=== PATIENT | male | born 1965 | race Caucasian/White ===

== ENCOUNTER → 2021-03-15 11:36 | Outpatient (CLI) | payer OTHER, SELFPAY ==
[2021-03-16 15:27] LABS: Covid-19 Nasal PCR Sendout Lex POSITIVE
== END ==
PROVIDERS: Visit Provider Nurse Practitioner
DX: U07.1 COVID-19 (principal)
CPT/HCPCS: C9803; U0004; U0005

== ENCOUNTER → 2021-03-19 10:55 | Outpatient (CLI) | payer OTHER, SELFPAY ==
[2021-03-20 06:08] LABS: Covid-19 Nasal PCR Sendout Lex POSITIVE
== END ==
PROVIDERS: PCP Family Medicine; Visit Provider Nurse Practitioner
DX: U07.1 COVID-19 (principal)
CPT/HCPCS: C9803; U0004; U0005

== ENCOUNTER 2023-12-09 03:23 | Emergency (ER) | payer BC, SELFPAY ==
[2023-12-09] VITALS (9 sets, daily range): BP systolic 157–197; BP diastolic 97–117; PULSE 72–97; RESP 18–24; TEMP 36.6; O2SAT 94–100; BMI 22.2
--- NOTE | 2023-12-09 03:41 | CT_ITS ---
PROCEDURE INFORMATION: Exam: CT Abdomen And Pelvis Without Contrast Exam date and time: 12/09/2023 4:07 AM Age: 58 years old Clinical indication: Abdominal pain; Flank; Right; Additional info: R flank pain, suspect stone TECHNIQUE: Imaging protocol: Computed tomography of the abdomen and pelvis without contrast. Radiation optimization: All CT scans at this facility use at least one of these dose optimization techniques: automated exposure control; mA and/or kV adjustment per patient size (includes targeted exams where dose is matched to clinical indication); or iterative reconstruction. COMPARISON: No relevant prior studies available. FINDINGS: Liver: Normal. No mass. Gallbladder and biliary ducts: Normal. No calcified stones. No ductal dilation. Pancreas: Normal. No ductal dilation. Spleen: Normal. No splenomegaly. Adrenal glands: Normal. No mass. Kidneys and ureters: 3 mm stone in the distal right ureter with mild right-sided hydroureter and hydronephrosis. 5 mm stone is seen in the lower pole of the left kidney. Stomach and bowel: Unremarkable. No obstruction. No mucosal thickening. Appendix: No evidence of appendicitis. Intraperitoneal space: Unremarkable. No free air. No significant fluid collection. Vasculature: Unremarkable. No abdominal aortic aneurysm. Lymph nodes: Unremarkable. No enlarged lymph nodes. Urinary bladder: Unremarkable as visualized. Reproductive: Unremarkable as visualized. Bones/joints: Unremarkable. No acute fracture. Soft tissues: Unremarkable. IMPRESSION: 3 mm stone in the distal right ureter with mild right-sided hydroureter and hydronephrosis. 5 mm stone is seen in the lower pole of the left kidney.
--- NOTE | 2023-12-09 03:42 | PC.NURSE ---
Dr. Lopez at bedside
--- NOTE | 2023-12-09 03:44 | ED_ITS ---
Discharge Plan Disposition Patient Disposition: Home, Self-Care Condition: Good Prescriptions Prescriptions: New hydrocodone-acetaminophen 5-325 mg tablet 1 tab PO Q6H PRN (Reason: pain (scale score 7-10)) Qty: 10 0RF ondansetron 4 mg tablet,disintegrating 4 mg PO Q6H PRN (Reason: nausea and vomiting) Qty: 10 0RF tamsulosin 0.4 mg capsule 0.4 mg PO DAILY Qty: 7 0RF Referrals Follow up/Referrals: Jesús Beard MD [Staff Physician] - See instructions (R ureteronephrosis 3mm) Activity Restrictions/Add. Instructions Additional Instructions/Restrictions: You were evaluated in the ER and are appropriate for discharge at this time. Take acetaminophen, ibuprofen if needed for pain. If these medications do not control your pain, then take the hydrocodone. Note that hydrocodone has 325 mg of acetaminophen in it, do not exceed 4000 mg of acetaminophen total in 24 hours. If you take the hydrocodone, do not drive or operate machinery as this medication can make you sleepy and impair your judgment. Drink plenty of water. Take the ondansetron if needed for nausea and vomiting, take the tamsulosin nightly to help pass the stone. You have been referred to Dr. Beard for outpatient follow-up, also make an appointment with your primary care doctor for reevaluation. Return to the ER with new, worsening, or otherwise concerning symptoms. Clinical Impressions Clinical Impression: Ureterolithiasis, Hydronephrosis, Acute right flank pain Instructions Patient Instructions: DI for Acute Abdominal Pain Print Language Print Language: Spanish Discharge ED Provider: Juan Lopez Adult HPI General Chief complaint: Abdominal Pain Stated complaint: R side, back pain, vomiting Time Seen by Provider: 12/09/23 03:33 Mode of Arrival: Ambulatory Source of Information: Patient Limitations: No Limitations Description of Symptoms (Recalled from ER Triage Doc. by RN): Patient has had severe right flank pain since 2:40 am. History of Present Illness HPI narrative: 58-year-old male with a history of diabetes on metformin and previous left kidney stone in 1995 presents to the ER with severe right flank pain that started approximately 1 hour prior to arrival. Patient states he believes he has a kidney stone. Pain was sudden onset. He states earlier today his urine had a strong smell but he has not had dysuria or hematuria. Patient reports no fevers but states he is shaky from the pain. He also had emesis upon arrival in the ER secondary to pain. Patient reports his whole right side is sore. He denies fevers. Emesis has been nonbloody, nonbilious. ROS otherwise negative. Related Data Previous Rx's ?Medication ?Instructions ?Recorded hydrocodone 5 mg-acetaminophen 325 1 tab PO Q6H PRN pain (scale score 12/09/23 mg tablet 7-10) #10 tabs ondansetron 4 mg disintegrating 4 mg PO Q6H PRN nausea and 12/09/23 tablet vomiting #10 tabs tamsulosin 0.4 mg capsule 0.4 mg PO DAILY #7 caps 12/09/23 Allergies Allergy/AdvReac Type Severity Reaction Status Date / Time Penicillins Allergy Unknown Verified 10/22/17 15:57 [facility] Disclaimer: The information contained in this section may have been updated after the patient was seen, as this information can be updated by other users. Social History Smoking Status: Never smoker alcohol intake: never current occupational status: employed Travel in the last 8 weeks: None ROS Obtained: Yes Systems reviewed as appropriate & no additional complaints except as documented Positive ROS per HPI Physical Exam General General appearance: alert and in no apparent distress Head Head exam: atraumatic and normocephalic Eye Eye exam: Present PERRL and EOMI ENT ENT exam: Present mucous membranes moist Neck Neck exam: Present normal inspection and full ROM Chest Chest inspection: Present symmetric chest wall rise Respiratory Respiratory exam: Present normal lung sounds bilaterally; Absent respiratory distress, wheezes or stridor Cardiovascular Cardiovascular exam: Present regular rate and normal rhythm Abdominal Exam Abdominal exam: Present soft; Absent distention, tenderness, guarding or rebound Extremities Exam Extremities exam: Present full ROM Back Exam Back exam: Present CVA tenderness (R) (Severe); Absent CVA tenderness (L) Neurological Exam Neurological exam: Present alert and oriented X3; Absent motor sensory deficit Psychiatric Psychiatric exam: Present normal affect and normal mood Skin Skin exam: Present warm and dry Medical Decision Making Medical Records Screening: Per USPSTF and CDC recommendations, given the prevalence of disease in our region, it is our hospital?s policy to screen for HIV and viral Hepatitis for all patients aged 18 and over and those with ongoing risk factors. Matt Inquiry Pt receiving controlled substance: Yes Matt was queried for this patient: Yes Reference #:: [id number] Risks and benefits of using a controlled substance: were discussed with pt by me Vital Signs: 12/09/23 03:25 12/09/23 03:34 12/09/23 03:45 Temperature 97.9 F Temperature Source Oral Pulse Rate 86 89 Pulse Rate [Left Radial] 97 H Respiratory Rate 18 Blood Pressure Blood Pressure [Right Arm] 197/117 H Blood Pressure Mean [Right Arm] 143 Blood Pressure Source [Right Arm] Automatic Cuff Blood Pressure Position [Right Arm] Supine 02 Sat by Pulse Oximetry 99 100 99 Oxygen Delivery Method Room Air 12/09/23 04:00 12/09/23 04:30 12/09/23 05:00 Temperature Temperature Source Pulse Rate 85 83 79 Pulse Rate [Left Radial] Respiratory Rate Blood Pressure 160/100 H 173/99 H 157/97 H Blood Pressure [Right Arm] Blood Pressure Mean [Right Arm] Blood Pressure Source [Right Arm] Blood Pressure Position [Right Arm] 02 Sat by Pulse Oximetry 99 100 99 Oxygen Delivery Method 12/09/23 05:30 12/09/23 06:00 Temperature Temperature Source Pulse Rate 81 90 Pulse Rate [Left Radial] Respiratory Rate Blood Pressure 169/97 H 159/104 H Blood Pressure [Right Arm] Blood Pressure Mean [Right Arm] Blood Pressure Source [Right Arm] Blood Pressure Position [Right Arm] 02 Sat by Pulse Oximetry 98 94 L Oxygen Delivery Method Lab Data Lab Results 12/09/23 03:34: WBC 9.2, RBC 5.17, Hgb 16.0, Hct 46.7, MCV 90.4, MCH 31.0, MCHC 34.3, RDW 13.5, Plt Count 224, MPV 7.6, Neut % (Auto) 54.1, Lymph % (Auto) 36.6, [place] % (Auto) 6.8, Eos % (Auto) 1.3, Baso % (Auto) 1.1, Neut # (Auto) 5.0, Lymph # (Auto) 3.4, [place] # (Auto) 0.6, Eos # (Auto) 0.1, Baso # (Auto) 0.1, PT 10.6, INR 0.94, Sodium 143, Potassium 3.4 L, Chloride 107, Carbon Dioxide 27, Anion Gap 12.4, BUN 17, Creatinine 0.90, Estimated Creat Clear 87, Estimated GFR 86, Est GFR ( Amer) 104, Glucose 181 H, Calcium 9.8, Total Bilirubin 0.6, AST 28, ALT 29, Alkaline Phosphatase 103, Total Protein 8.1, Albumin 5.2 H, Globulin 2.9, Albumin/Globulin Ratio 1.8, HIV 1&2 Antibody Rapid Nonreactive 12/09/23 05:45: Urine Color Yellow, Urine Appearance Clear, Urine pH 7.0, Ur Specific [place] 1.020, Urine Protein Negative, Urine Glucose (UA) 3+, Urine Ketones 1+, Urine Blood Negative, Urine Nitrate Negative, Urine Bilirubin Negative, Urine Urobilinogen 0.2, Ur Leukocyte Esterase Negative, Urine WBC Occasional, Ur Squamous Epith Cells Occasional, Urine Bacteria Trace 12/09/23 03:34 12/09/23 03:34 Orders (Tests/Meds): ED MEDICATIONS Discontinued Medications Generic Name Dose Route Start Last Admin Trade Name Freq PRN Reason Stop Dose Admin Hydrocodone Bitart/Acetaminophen 1 tab 12/09/23 05:34 12/09/23 05:41 Hydrocodone/Apap 5/325 Mg Tablet PO 12/09/23 05:35 1 tab ONCE ONE Administration Fentanyl Citrate 50 mcg 12/09/23 04:42 12/09/23 04:53 Fentanyl 250mcg/5ml Vial IV 12/09/23 04:43 Not Given ONCE ONE Fentanyl Citrate 50 mcg 12/09/23 04:53 12/09/23 04:54 Fentanyl 100mcg/2ml Vial IV 12/09/23 04:54 50 mcg ONCE ONE Administration Sodium Chloride 1,000 mls @ 999 mls/hr 12/09/23 03:41 12/09/23 03:48 Sod Chlor 0.9% 1000ml Bag IV 12/09/23 04:41 999 mls/hr .Q1H1M ONE Administration Ketorolac Tromethamine 30 mg 12/09/23 03:43 12/09/23 03:47 Ketorolac 30mg/Ml Vial IV 12/09/23 03:44 30 mg ONCE ONE Administration Morphine Sulfate 4 mg 12/09/23 03:41 12/09/23 03:48 Morphine 4mg/Ml Syringe IV 12/09/23 03:42 4 mg ONCE ONE Administration Morphine Sulfate 4 mg 12/09/23 03:41 12/09/23 04:38 Morphine 4mg/Ml Syringe IV 01/08/24 03:40 4 mg Q1HP PRN Administration Severe Pain (7-10) Ondansetron HCl 4 mg 12/09/23 03:41 12/09/23 03:47 Ondansetron 4mg/2ml Vial IV 12/09/23 03:42 4 mg ONCE ONE Administration Oxycodone HCl 5 mg 12/09/23 05:29 12/09/23 05:35 Oxycodone 5mg Immediate Release Tablet PO 12/09/23 05:30 Not Given ONCE ONE Tamsulosin HCl 0.4 mg 12/09/23 05:45 12/09/23 05:41 Tamsulosin 0.4mg Capsule PO 12/09/23 05:46 0.4 mg ONCE ONE Administration ORDERS Category Date Time Status CT abdomen pelvis wo con Stat Cat Scan 12/09/23 03:41 Completed CBC w/Auto Diff [Complete Blood Count Auto Diff] Stat Lab 12/09/23 03:34 Completed CMP [Comprehensive Metabolic Panel] Stat Lab 12/09/23 03:34 Completed HIV (1&2) Antibody Rapid Stat Lab 12/09/23 03:34 Completed Hep C Ab with Reflex to RNA Stat Lab 12/09/23 03:34 Received PT INR [Prothrombin Time INR] Stat Lab 12/09/23 03:34 Completed Urinalysis and Microscopic Stat Lab 12/09/23 05:45 Completed Medical Decision Narrative: In summary, this 58-year-old male with comorbidities as listed in HPI presents to the emergency department today with right flank pain. On initial evaluation patient is hypertensive likely secondary to pain but overall stable, afebrile, exam notable for severe right CVA tenderness, cardiopulmonary and abdominal exam benign. Differential diagnosis includes but is not limited to nephrolithiasis, ureterolithiasis, hydronephrosis, hydroureter, kidney dysfunction, electrolyte abnormality, pyelonephritis, urinary tract infection, I considered intra- abdominal pathology such as appendicitis but much lower suspicion for this given patient's acute onset of symptoms, afebrile presentation, and obvious right CVA tenderness. Based on these concerns, I ordered serum labs, CT imaging. Patient received IV fluids, morphine, Zofran, Toradol for management of symptoms. Patient required additional dose of morphine for pain control. Labs personally reviewed demonstrate no leukocytosis or anemia, no findings of kidney dysfunction, UA negative for findings of infection. Patient continued having discomfort and received low-dose IV fentanyl. After this, his pain was well-controlled. CT abdomen pelvis personally interpreted demonstrates 3 mm distal right ureteral stone with mild hydronephrosis. See radiology read for final interpretation. Patient received a dose of hydrocodone in the ER prior to discharge. He tolerated this well. I prescribed hydrocodone, tamsulosin, Zofran for outpatient management. Risks and benefits of narcotic medications were discussed with the patient by me. Patient was referred to urology for reevaluation. Patient was given instructions on symptomatic management, follow up instructions, and return precautions for the emergency department. Patient indicated understanding and was discharged in stable condition. Critical Care Critical Care Time Critical Care Time: No
[2023-12-09] MEDS: ONDANSETRON 4MG/2ML VIAL 4 MG IV (03:47)
[2023-12-09] MEDS: KETOROLAC 30MG/ML VIAL 30 MG IV (03:47)
[2023-12-09] MEDS: MORPHINE 4MG/ML SYRINGE 4 MG IV ×2 (03:48→04:38)
[2023-12-09] MEDS: 0.9 % SODIUM CHLORIDE 1000ML 1,000 ML 999 ML IV (03:48)
[2023-12-09 03:52] LABS: Basophils # 0.1 K/mm3 (0-0.2); Basophils % 1.1 % (0.1-2.0); Eosinophils # 0.1 K/mm3 (0.0-0.4); Eosinophils % 1.3 % (0.1-12.0); Hematocrit 46.7 % (42.0-52.0); Lymphocytes # 3.4 K/mm3 (0.7-4.5); Lymphocytes % 36.6 % (10-50); Mean Corpuscular HGB Conc 34.3 g/dL (31.8-35.4); Mean Corpuscular Volume 90.4 fl (80-94); Mean Platelet Volume 7.6 fl (7.4-10.4); Monocytes # 0.6 K/mm3 (0.1-1.0); Monocytes % 6.8 % (1.7-9.3); Neutrophils % 54.1 % (37.0-80.0); Platelet Count 224 K/mm3 (142-424); Red Blood Count 5.17 M/mm3 (4.60-6.20); Red Cell Distribution Width 13.5 % (11.5-17.5); White Blood Count 9.2 K/mm3 (4.8-10.8)
[2023-12-09 03:56] LABS: Alanine Aminotransferase 29 U/L (12-78); Albumin Level 5.2 g/dl (3.5-5.0); Albumin/Globulin Ratio 1.8 (1.1-1.8); Alkaline Phosphatase 103 U/L (38-126); Anion Gap 12.4 mEq/L (5-15); Aspartate Amino Transferase 28 U/L (17-59); Bilirubin,Total 0.6 mg/dl (0.2-1.3); Blood Urea Nitrogen 17 mg/dl (9-20); Calcium 9.8 mg/dl (8.4-10.2); Carbon Dioxide 27 mmol/L (22.0-30.0); Chloride 107 mmol/L (98-107); Creatinine Clearance Estimated 87 mL/min (50-200); Estimated Glomerular Filt Rate 86 ml/min (>60); GFR (African American) 104 ML/MIN (>60); Globulin 2.9 g/dL (1.3-3.2); Glucose 181 mg/dl (74-100); Potassium 3.4 mmoL/L (3.5-5.1); Sodium 143 mmol/L (136-145); Total Protein,Serum 8.1 g/dl (6.3-8.2)
[2023-12-09 03:57] LABS: INR 0.94 (0.9-1.1); Prothrombin Time 10.6 seconds (10.1-12.5)
--- NOTE | 2023-12-09 04:03 | PC.NURSE ---
patient to radiology
--- NOTE | 2023-12-09 04:11 | PC.NURSE ---
patient back in room
[2023-12-09 04:40] LABS: HIV (1&2) Antibody Rapid NONREACTIVE (NONREACTIVE)
--- NOTE | 2023-12-09 04:45 | PC.NURSE ---
Pt is in severe pain, asking for something else . I did administer the PRN dose of Morphine 4mg IVP and let Dr. Lopez know of pt's increase pain and medicated per MAR. no new orders.
[2023-12-09] MEDS: FENTANYL 100MCG/2ML VIAL 50 MCG IV (04:54)
--- NOTE | 2023-12-09 05:07 | PC.NURSE ---
Performed bladder scan and it revealed [address] Lopez notified
--- NOTE | 2023-12-09 05:08 | PC.NURSE ---
pt pain is much controlled and he is resting more comfortably. His sat has dropped to 86% at times and back up to 97%. Pt states he has known [place]. Placed on 2LPM NC
[2023-12-09] MEDS: HYDROCODONE/APAP 5/325 MG TABLET 1 TAB PO (05:41)
[2023-12-09] MEDS: TAMSULOSIN 0.4MG CAPSULE 0.4 MG PO (05:41)
--- NOTE | 2023-12-09 05:47 | PC.NURSE ---
patient assisted to bathroom, urine sample sent to lab
[2023-12-09 05:53] LABS: Microscopic, Urine URINE MICROSCOPIC (MICROSCOPIC)
[2023-12-09 05:54] LABS: Appearance,Urine CLEAR (Clear); Bilirubin,Urine Negative (Negative); Blood, Urine Negative (Negative); Color,Urine YELLOW (Yellow); Glucose,Urine (UA) 3+ (Negative); Ketones,Urine 1+ (Negative); Leukocyte Esterase,Urine Negative (Negative); Nitrate,Urine Negative (Negative); Protein,Urine Negative (Negative); Urobilinogen,Urine 0.2 EU/dl (0.2)
[2023-12-09 06:04] LABS: Bacteria,Urine Trace /lpf; Squamous Epithelial Cell,Urine Occasional #/hpf (0-5); WBC,Urine Occasional #/hpf (0-3)
[2023-12-10 09:33] LABS: HCV Ab Non Reactive (Non Reactive)
== END 2023-12-09 06:28 | disposition home or self-care (01) ==
PROVIDERS: Emergency Provider Emergency Medicine
DX: N20.1 Calculus of ureter (principal); N13.30 Unspecified hydronephrosis; R10.9 Unspecified abdominal pain; R11.11 Vomiting without nausea
CPT/HCPCS: 74176; 80053; 81001; 85025; 85610; 86803; 87389; 96361; 96374; 96375; 99284; J1885; J2270; J2405; J3010; J7030

== ENCOUNTER 2023-12-21 09:51 | Outpatient (CLI) | payer BC, SELFPAY | END 2023-12-21 23:59 | disposition home or self-care (01) | LOC: LAB 09:55 | PROVIDERS: PCP Family Medicine; Visit Provider Urology | DX: N40.0 Benign prostatic hyperplasia without lower urinary tract symptoms (principal) | CPT/HCPCS: 36415; G0103 ==

== ENCOUNTER 2024-01-26 13:10 | Outpatient (CLI) | payer BC, SELFPAY ==
--- NOTE | 2024-01-26 13:16 | XR_ITS ---
FINAL REPORT CLINICAL HISTORY: flank pain FINDINGS: ABDOMEN SINGLE VIEW There is a nonspecific, nonobstructive bowel gas pattern. No abnormal dilatation is identified. There is a moderate amount of retained stool throughout the colon. There is no abnormal calcification. IMPRESSION: Moderate stool burden. Reviewed, Interpreted and Dictated by Alon Cunningham III, MD Transcribed by Beniat Vanessa Authenticated and [facility]
== END 2024-01-26 23:59 | disposition home or self-care (01) ==
LOC: RAD 13:11
PROVIDERS: PCP Family Medicine; Visit Provider Urology
DX: R10.9 Unspecified abdominal pain (principal)
CPT/HCPCS: 74018

== ENCOUNTER 2024-06-03 18:06 | Emergency (ER) | payer OTHER, SELFPAY ==
[2024-06-03 18:27] VITALS: BP 142/95; PULSE 90; RESP 20; TEMP 37; O2SAT 98; BMI 21.5
[2024-06-03] MEDS: TET/DIPHTH/PERT-ADULT 0.5ML SYRINGE 0.5 ML IM (18:48)
--- NOTE | 2024-06-03 18:57 | ED_ITS ---
<Statement entered by Devora Dangelo DO - 06/04/24 00:01> I was consulted by the ROBBIN, and we discussed the complexity of the problems being addressed. I approved the treatment and management plan for this patient's care in the emergency department, thus performing a substantive portion of the medical decision making. Devora Dangelo DO Discharge Plan Disposition Patient Disposition: Home, Self-Care Condition: Good Prescriptions Prescriptions: New cephalexin 500 mg capsule 500 mg PO BID 7 Days Qty: 14 0RF No Action clindamycin HCl 300 mg capsule 300 mg PO Patient Comments: TAKE ONE CAPSULE BY MOUTH EVERY 6 HOURS -- FINISH ALL MEDICINE -- tadalafil [Cialis] 5 mg tablet 5 mg PO DAILY 30 Days Qty: 30 3RF Referrals Follow up/Referrals: Aaron Klein MD [Primary Care Provider] - See instructions Activity Restrictions/Add. Instructions Additional Instructions/Restrictions: Please keep clean dry and covered with a nonocclusive dressing. Recommend washing with soap and water. Sutures need to stay in for 2 weeks. If you have any increased redness drainage swelling or pain return to the emergency department. I prescribed an antibiotic for you please take it till it is all gone. Clinical Impressions Clinical Impression: Laceration of right thumb Qualifiers: Encounter type: initial encounter Damage to nail status: without damage Foreign body presence: without foreign body Qualified Code(s): S61.011A - Laceration without foreign body of right thumb without damage to nail, initial encounter Instructions Patient Instructions: DI for Laceration Repair Print Language Print Language: Slovak Discharge ED Provider: Devora Dangelo General Adult HPI General Chief complaint: Wound/Laceration Stated complaint: A/O cut r thumb open 06/03/24 1730 Time Seen by Provider: 06/03/24 18:35 Mode of Arrival: Ambulatory Source of Information: Patient Description of Symptoms (Recalled from ER Triage Doc. by RN): pt cut thumb on piece of metal, bleeding is controlled and edges are approxiamate History of Present Illness HPI narrative: Patient presents for evaluation of a laceration of his right thumb. Patient was trying to move a freezer and advertently cut the volar aspect of his right thumb on a piece of metal. He denies any loss of motor or sensory but could not control the bleeding so he came to the emergency department. Related Data Home Medications ?Medication ?Instructions ?Recorded ?Confirmed clindamycin HCl 300 mg capsule 300 mg PO 02/01/24 02/01/24 Previous Rx's ?Medication ?Instructions ?Recorded tadalafil 5 mg tablet (Cialis) 5 mg PO DAILY 30 days #30 tabs 02/01/24 cephalexin 500 mg capsule 500 mg PO BID 7 days #14 caps 06/03/24 Allergies Allergy/AdvReac Type Severity Reaction Status Date / Time Penicillins Allergy Unknown Verified 02/01/24 09:25 [facility] Disclaimer: The information contained in this section may have been updated after the patient was seen, as this information can be updated by other users. Social History Smoking Status: Never smoker alcohol intake: never current occupational status: employed Travel in the last 8 weeks: None Have you lived/traveled outside US in past 30 days?: No Contact w/someone who lives/traveled outside US past 30 days?: No Exposure to someone with infectious disease in past 14 days?: No Do you have a fever (greater than 100.4 F or 38 C)?: No Have you tested positive for COVID-19: No Exposed to someone with COVID-19 in past 14 days?: No Do you have a sore throat?: No Do you have a cough?: No Do you have any weakness?: No Do you have any diarrhea?: No Are you experiencing any unusual bleeding?: No Do you have any muscle aches/pain?: No Do you have any abdominal pain?: No Are you experiencing loss of taste or smell?: No Other Medical History Have you received the Pneumonia Vaccine: Yes ROS Obtained: Yes Systems reviewed as appropriate & no additional complaints except as documented Physical Exam General General appearance: alert and in no apparent distress Respiratory Respiratory exam: Present normal lung sounds bilaterally Cardiovascular Cardiovascular exam: Present regular rate and +S2 Neurological Exam Neurological exam: Present alert and oriented X3 Medical Decision Making Medical Records Medical records reviewed: Yes I reviewed the patient's medical records. Screening: Per USPSTF and CDC recommendations, given the prevalence of disease in our region, it is our hospital?s policy to screen for HIV and viral Hepatitis for all patients aged 18 and over and those with ongoing risk factors. Matt Inquiry Pt receiving controlled substance: No Vital Signs: 06/03/24 18:27 06/03/24 19:09 Temperature 98.6 F 98.1 F Temperature Source Oral Pulse Rate 79 Pulse Rate [Left Radial] 90 Respiratory Rate 20 20 Blood Pressure 138/78 Blood Pressure [Right Arm] 142/95 H Blood Pressure Mean [Right Arm] 110 02 Sat by Pulse Oximetry 98 Oxygen Delivery Method Room Air Room Air Lab Data Lab results reviewed: Yes I reviewed the patient's lab results. Orders (Tests/Meds): ED MEDICATIONS Discontinued Medications Generic Name Dose Route Start Last Admin Trade Name Erick PRN Reason Stop Dose Admin Cephalexin HCl 500 mg 06/03/24 18:59 06/03/24 19:03 Cephalexin 500mg Capsule PO 06/03/24 19:00 500 mg ONCE ONE Administration Lidocaine/Epinephrine 10 ml 06/03/24 18:59 06/03/24 19:01 Lidocaine 1% W/Epi 1:100,000 20ml Vial SQ 06/03/24 19:00 10 ml ONCE ONE Administration Tetanus/Reduced Diphtheria/Acell Pertussis 0.5 ml 06/03/24 18:39 06/03/24 18:48 Tet/Diphth/Pert-Adult 0.5ml Syringe IM 06/03/24 18:40 0.5 ml .ONCE ONE Administration Medical Decision Narrative: In summary patient is a 4-year-old male who presents to the emergency department for evaluation of right thumb injury. Patient is hemodynamically stable upon arrival, afebrile. Physical exam is remarkable for approximately 3 cm laceration that begins at the DIP flexor crease that extends towards the tip of the thumb on the volar surface. Patient has full range of motion is neurovascular intact distally.. Differential diagnosis includes simple versus complex laceration. Initial workup will be conducted with exam under subcutaneous anesthesia. Initial interventions include Keflex and Tdap. Initial workup after assuring that the patient is neurovascularly intact patient was then anesthetized with 10 cc of lidocaine with epinephrine. After adequate anesthesia obtained wound was explored and patient only has superficial laceration does not involve deep structures. Given this wound was irrigated with copious amounts of saline and then the wound was repaired in a primary fashion with eleven 4.0 nylon interrupted sutures. Patient is appropriate for discharge with wound care instructions given to myself a prescription for Keflex and instructions to have his sutures removed in 2 weeks. He is given strict return precautions . Procedures Laceration Laceration 1: Site: thumb Side (If applicable): right Size (cm): 3 Description: linear Depth: simple, single layer Local Anesthetic: lidocaine 1% and with epi Amount of anesthesia used (mL): 10 Pre-repair: wound explored, irrigated extensively and deep structures intact Skin layer closed with: nylon Size (cm): 4-0 Number of sutures: 11 Technique: simple, interrupted Critical Care Critical Care Time Critical Care Time: No
[2024-06-03] MEDS: LIDOCAINE 1% W/EPI 1:100,000 20ML VIAL 10 ML SQ (19:01)
[2024-06-03] MEDS: cephALEXin 500MG CAPSULE 500 MG PO (19:03)
[2024-06-03 19:09] VITALS: BP 138/78; PULSE 79; RESP 20; TEMP 36.7; O2SAT 99
== END 2024-06-03 19:10 | disposition home or self-care (01) ==
PROVIDERS: Emergency Provider Emergency Medicine; PCP Family Medicine
DX: S61.011A Laceration without foreign body of right thumb without damage to nail, initial encounter (principal); W26.8XXA Contact with other sharp object(s), not elsewhere classified, initial encounter; Z23 Encounter for immunization
CPT/HCPCS: 12002; 90471; 90715; 99283

== ENCOUNTER 2024-08-07 21:27 | Emergency (ER) | payer SELFPAY ==
--- OUTSIDE RECORDS SUMMARY | 2024-06-02 11:45 | XMS_ITS | Continuity of Care Document ---
Author Organization [facility] Address [address] [place] [address] Phone Care Team Providers Care Hot Dip Plating Supervisor Name Role Phone Ronal ALDRIDGE, Adam Unavailable Unavailable Allergies, Adverse Reactions, Alerts Substance Reaction Status Criticality Penicillins HivesHives Active No Information Procedures Procedure Date Office/outpatient visit,est, mod 2024 Office/outpatient visit,new, mod 2024 X-ray exam of hand, 3+ views Advance Directives Directive Yes / No Effective Date File Name No Information Encounters Encounter Description Practice Location Reason(s) For Visit Diagnoses Date Provider Providers Copied on Encounter Office/outpat ient visit,est, mod [facility], [facility] [place], [address], [place] tel:[phone] [facility] Localized swelling, mass and lump, upper limb, bilateral Ronal Medina. [address] [facility], [facility] [address], [place], [id number] , [place]. tel:[phone] Referring Provider: Aaron Soliman, [address] [facility] [address], [address] . tel:[phone] Office/outpat ient visit,new, [facility], [address] [place] [address], [address], [place] tel:[phone] [facility] Localized swelling, mass and lump, upper limb, bilateral Ronal Medina. [address] [facility], [address], [place], [place], [id number] , [place]. tel:[phone] Referring Provider: Aaron Soliman, [facility] [place] [address], [address] . tel:[phone] Family History Family Member Type Diagnosis Age At Onset No Information Payers Payer name Insurance type Covered republican ID Ian morales(epiAndriy Downey [facility] Medicaid - [id number] Social History Type Description Quantity Date Captured Comments Alcohol Use Details No Caffeine Use Details Unknown Tobacco Use Status No Information Smoking Status Never smoker Sex Male Chief Complaint And Reason For Visit No Information Reason For Referral Reason For Referral No Information Plan Of Treatment Date Type Action Status Future Order: Radiology Order MR I Hand WO Contrast ([id number]), Ordered on: Ordered History Of Present Illness Encounter Date Complaint History Of Prese nt Illness hand Functional Status Date Functional Assessmen t No Information Instructions Date Instruction Additional Infor mation No Information Assessments Type Assessment Date No Information Patient Care Teams Name Effective Dates (start - stop) Status Members No Information
--- OUTSIDE RECORDS SUMMARY | 2024-06-16 09:30 | XMS_ITS ---
[facility] Address [address] [place] [id number] Care Team Providers Care Philosophy Professor Name Role Phone Blanquita Klein Primary Care Provider [phone] Zeeshan Cabezas Unavailable [phone] Lidya Tse Unavailable [phone] Allergies Allergen (clinical drug ingredient) Drug/Non Drug Allergy documented on EMR Reaction Allergy Type Onset Date Status cefuroxime Cefuroxime Axetil hives Drug Allergy Active ciprofloxacin Cipro body aches, mouth ulcers Drug Allergy Active Penicillin Unknown Drug Allergy Active REASON FOR VISIT stitch removal Medications Medication SIG (Take, Route, Frequency, Duration) Notes Start Date End Date Status Clindamycin HCl 300 MG 1 capsule Orally Three times a day for 10 day(s) Active Xigduo XR 5-1000 MG 1 tablet Orally Two times a day for 90 days Active Ozempic (0.25 or 0.5 MG/DOSE) 2 MG/3ML 0.5mg Subcutaneous once a week 04/22/2024 Active Blood Glucose Test - as directed to test twice daily Diagnosis: E11.65 03/12/2023 Active Betamethasone Dipropionate Aug 0.05 % 1 application Externally Two times a day 10/15/2023 Active Flonase Allergy Relief 50 MCG/ACT 1 spray in each nostril Nasally Twice a day 03/04/2024 Active Multivitamin 1 TAB ONCE A DAY Active Betamethasone Dipropionate Aug 0.05 % 1 juan josé applied topically 2 times a day 07/17/2022 Active Blood Glucose Monitoring Suppl w/Device as directed to test twice daily Diagnosis: E11.65 03/12/2023 Active Vital Signs Blood pressure systolic 120 mm Hg 06/17/19 25 Blood pressure diastolic 78 mm Hg 025 Heart Rate 82 /min 06/16/2024 Height 70.50 in 06/16/2024 Weight 156.6 lbs 06/16/2024 BMI 22.15 kg/m2 06/16/2024 Encounters Encounter Location Date Provider Diagnosis [facility] [address] [place] [address] [address] [facility] [address] [place], [place] [id number] 06/16/2024 Lidya Tse Visit for suture removal Z48.02 Assessments Encounter Date Diagnosis (ICD Code) Assessment Notes Treatment Notes Treatment Clinical Notes Section Notes 06/16/2024 Visit for suture removal (ICD-10 - Z48.02) Sutures removed without difficulty. Plan Of Treatment Treatment Notes Assessment Notes Visit for suture removal Sutures removed without difficulty. Next Appt Details Follow Up: prn, Reason: Provider Name:Lidya Mcknight y, 10/21/2024 09:00:00 AM, [address] [place] [address] [address] [facility], [address], [place], [place], [id number], Progress Notes * SINHAVALERIEDOB: 4 (59 yo M)Acc No.[id number]:06/16/2024 Progress Notes Patient: VALERIE BRADFORD Provider: MONICA Meredith :1965 A ge:58 Y S ex:Male Date:06/16/2024 Address:[address] [place] [address] [address], [place], [id number] Pcp:Blanquita Klein Subjective: * Chief Complaints: * 1 . Stitch removal. * HPI: H PI: 58 year old male presents with c/o Patient is here today for?Pt sts he is here today for stitch removal from his rt thumb. Pt sts it did bust open in one spot, but sts he thinks it is fine. Pt sts ihe has the stitches for 2 weeks . * ROS: D ERMATOLOGY: no R ml. n o H jackson. G ASTROENTEROLOGY: no N ausea. n o V omiting. n o D iarrhea.? U ROLOGY: no D ifficulty urinating. n o B lood in urine. * Medical History: M igraines, Type 2 Diabetes, Hypertension, Hypertriglyceridemia, Vikings Disease (Dupuytren's Contractures). * Surgical History: L T Ear Basal Cell Removal- Dr Tompkins 01/2014. * Hospitalization/Major Diagno stic Procedure: F ivis- [facility] 10/2014. * Family History: F ather: . M other: alive. S iblings: alive. C hildren: alive. 1 brother(s) - healthy. 3 daughter(s) - healthy. . * Social History: C URRENT TOBACCO USE S moking Status: Patient does NOT smoke. C affeine: yes, frequency:. Marital Status: . Past smoking status: no, Smoking status: Does not smoke. Alcohol: no. * Medications: T aking Flonase Allergy Relief 50 MCG/ACT Suspension 1 spray in each nostril Nasally Twice a day , Taking Multivitamin 1 TAB ONCE A DAY , Taking Betamethasone Dipropionate Aug 0.05 % Cream 1 juan josé applied topically 2 times a day , Taking Blood Glucose Monitoring Suppl w/Device Kit as directed to test twice daily , Notes to Pharmacist: Diagnosis: E11.65, Taking Blood Glucose Test - Strip as directed to test twice daily , Notes to Pharmacist: Diagnosis: E11.65, Taking Betamethasone Dipropionate Aug 0.05 % Cream 1 application Externally Two times a day , Taking Clindamycin HCl 300 MG Capsule 1 capsule Orally Three times a day , Taking Xigduo XR 5-1000 MG Tablet Extended Release 24 Hour 1 tablet Orally Two times a day , Taking Ozempic (0.25 or 0.5 MG/DOSE) 2 MG/3ML Solution Pen-injector 0.5mg Subcutaneous once a week , Medication List reviewed and reconciled with the patient * Allergies: C ipro: body aches, mouth ulcers - Side Effects, Penicillin, Cefuroxime Axetil: hives - Allergy. Objective: * Vitals: W t: 156.6, Temp: 97.6, BP: 120/78, HR: 82, Nurse: mmlyssa, Ht: 70.50, BMI:22.15. * Examination: G eneral Examination: General Appearance: N AD. Chest: n ormal shape and expansion. Heart: R SR. Lungs: c lear to auscultation. Skin: right thumb with 10 simple interrupted sutures removed with suture removal kit with no difficulty, steri-strips placed. Assessment: * Assessment: 1. V isit for suture removal - Z48.02 (Primary) Plan: * Treatment: * Follow Up: p rn * Billing Information: * Visit Code: 91067 Office Visit, Est Pt., Level 3. * Procedure Codes: * Electronic signature of MONICA Mays on 08/07/2024 at 10:03 PM EDT Sign off status: Pending * Provider: MONICA Meredith Date: 0 06/16/2024 Generated for Kameron bocanegra/Ally/Juan Fitting on: 0 08/07/2024 10:03 PM EDT History and Physical Notes * HPI (History of Present Illness) Category Sub-Category Detail Notes Category Not es HPI Patient is here today for Pt sts he is here today for stitch removal from his rt thumb. Pt sts it did bust open in one spot, but sts he thinks it is fine. Pt sts ihe has the stitches for 2 weeks Examination Category Sub-Category Detail Notes Category Not es General Examination Heart: RSR Lungs: clear to auscultatio n General Appearance: NAD Skin: right thumb with 10 simple interrupted sutures removed with suture removal kit with no difficulty, steri-strips placed Chest: normal shape and exp ansion
--- OUTSIDE RECORDS SUMMARY | 2024-06-17 06:45 | XMS_ITS ---
Author Organization [facility] Address [address] [facility] [address] [facility] [address] [place] [id number] Care Team Providers Care Preventive Medicine Officer Name Role Phone Blanquita Klein Primary Care Provider [phone] Zeeshan Cabezas Unavailable [phone] Jovanna Royal [phone] REASON FOR VISIT 6 Week Follow Up Encounters Encounter Location Date Provider Diagnosis [facility] [address] [facility] [address] [facility] [address] [place] [id number] 06/17/2024 Jovanna Royal Plan Of Treatment Next Appt Details Provider Name:Lidya lancaster, 10/21/2024 09:00:00 AM, [address] [facility] [address] [facility], [address], [place], [place], [id number], Progress Notes * VALERIE SINHADOB: 4 (59 yo M)Acc No.[id number]:06/17/2024 Progress Notes Patient: VALERIE BRADFORD Provider: Jovanna Royal M.D. :1965 A ge:58 Y S ex:Male Date:06/17/2024 Address:[address] [place] [address] [id number] Pcp:Blanquita Klein Subjective: * Chief Complaints: * 1 . 6 Week Follow Up. * Medical History: Objective: * Vitals: Assessment: Plan: * Treatment: * Billing Information: * Visit Code: * Procedure Codes: * Electronic signature of Jovanna Royal MD on 08/07/2024 at 10:03 PM EDT Sign off status: Pending * Provider: Jovanna Royal M.D. Date: 06/17/2024 Generated for Kameron bocanegra/Ally/Edwardo on: 0 08/07/2024 10:03 PM EDT
--- OUTSIDE RECORDS SUMMARY | 2024-07-03 13:00 | XMS_ITS | Encounter Summary ---
Author Organization [place] [address] Care Team Providers Care Tip Cementer Name Role Phone Unavailable Primary Care Provider Unavailabl e Reason for Visit * Reason Comments Sore Throat X yesterday, congest ion, green mucous, cough Encounter Details Date Type Department Care Team (Late st Contact Info) Description 07/03/2024 1:00 PM EDT Office Visit [facility] [address] [address] Anni Arias, [employer] SUPERVISOR [address] [place] [address] Acute cough (Primary Dx); Sore throat; Viral upper respiratory tract infection Social History Tobacco Use Types Packs/Day Years Used Date Smoking Tobacco: Never Smokeless Tobacco: Never Tobacco Cessation:Counseling Given: Not Answered Sex and Gender Information Value Date Recorded Sex Assigned at Not on file Legal Sex Male 12:33 PM EST Gender Identity Not on file Sexual Orientation Not on file documented as of this encounter Last Filed Vital Signs Vital Sign Reading Time Taken Comments Blood Pressure 140/90 07/03/2024 1:02 PM EDT Pulse 98 07/03/2024 1:02 PM EDT Temperature 36.6 C (97.8 F) 07/03/2024 1:02 PM EDT Respiratory Rate 20 07/03/2024 1:02 PM EDT Oxygen Saturation 98% 07/03/2024 1:02 PM EDT Inhaled Oxygen Concentration - - Weight 70.3 kg (155 lb) 07/03/2024 1:02 PM EDT Height 177.8 cm (5' 10 ) 07/03/2024 1:02 PM EDT Body Mass Index 22.24 07/03/2024 1:02 PM EDT documented in this encounter Ordered Prescriptions Prescription Sig Dispense Quantity Refills Last Filled Start Date End Date benzonatate (TESSALON) 200 mg Oral Capsule Take 1 Capsule by mouth every 8 hours as needed for Cough. 15 Capsule 07/03/2024 azelastine (ASTELIN) 137 mcg (0.1 %) Nasl [place], Non-Aerosol 1 [place] in each nostril 2 times daily. Use in each nostril as directed 30 mL 07/03/2024 predniSONE (DELTASONE) 20 mg Oral Tablet Take 1 Tablet by mouth daily for 5 days. 5 Tablet 07/03/2024 5 documented in this encounter Progress Notes * Anni Arias APRN - 07/03/2024 1:00 PM EDT Images from the original note were not included. Subjective Chief Complaint Patient presents with Sore Throat X yesterday, congestion, green mucous, cough Saravanan Sinha is a 59 y.o. male who presents to urgent care for evaluation of sore throat. Symptoms started yesterday and include cough, congestion, sinus pressure, sore throat, sneezing, headaches.Denies fever, chills, chest pain, shortness of breath, GI symptoms, body aches. No known sick contacts. He takes Claritin daily no other medications for his symptoms. Review of Systems Constitutional: Negative for chills and fever. HENT: Positive for congestion (Postnasal drip, green drainage), sinus pain and sore throat. Respiratory: Positive for cough. Negative for shortness of breath. Cardiovascular: Negative for chest pain. Gastrointestinal: Negative for diarrhea, nausea and vomiting. Musculoskeletal: Negative for myalgias. Neurological: Positive for headaches. Patient Active Problem List Diagnosis Migraine Outpatient Medications Marked as Taking for the 07/03/24 encounter (Office Visit) with Dandy Arias APRN Medication Sig Dispense Refill OZEMPIC 0.25 mg or 0.5 mg (2 mg/3 mL) SubQ Pen Injector inject 0.5 mg subcutaneously once a week XIGDUO XR 5-1,000 mg Oral tablet, IR & ER, biphasic 24hr TAKE TWO TABLETS BY MOUTH EVERY DAY INTHE MORNING Allergies Allergen Reactions Penicillins Hives Social Social History Socioeconomic History Marital status: Spouse name: None Number of children: None Years of education: None Highest education level: None Tobacco Use Smoking status: Never Smokeless tobacco: Never Vaping Use Vaping status: Never Used History reviewed. No pertinent family history. Immunization History Administered Date(s) Administered Flucelvax 10/15/2023 Hepatitis A, Adult 11/07/2020 Influenza, Injectable, MDCK, PF, Quadrivalent 11/07/2020, 11/28/2022 Moderna SARS-CoV-2 Vaccine 12+ Yrs (Light blue border) 05/02/2020, 05/30/2020 Moderna SARS-CoV-2 Vaccine 12+ Yrs Spikevax 12/05/2022 Tdap 08/22/2019, 06/03/2024 Zoster Recombinant 03/05/2020 No results found. 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 Physical Exam Vitals reviewed. Constitutional: General: He is not in acute distress. Appearance: Normal appearance. He is ill-appearing. HENT: Head: Normocephalic. Right Ear: Tympanic membrane, ear canal and external ear normal. Left Ear: Tympanic membrane, ear canal and external ear normal. Nose: Congestion present. Right Sinus: No maxillary sinus tenderness or frontal sinus tenderness. Left Sinus: No maxillary sinus tenderness or frontal sinus tenderness. Mouth/Throat: Lips: [place]. Mouth: Mucous membranes are moist. Pharynx: Oropharynx is clear. Uvula midline. Eyes: Extraocular Movements: Extraocular movements intact. Conjunctiva/sclera: Conjunctivae normal. Pupils: Pupils are equal, round, and reactive to light. Cardiovascular: Rate and Rhythm: Normal rate and regular rhythm. Pulses: Normal pulses. Heart sounds: Normal heart sounds. Pulmonary: Effort: Pulmonary effort is normal. No respiratory distress. Breath sounds: Normal breath sounds. Comments: 98% on room air. Speaking in full sentences. Respirations unlabored. Lungs clear to auscultation. Musculoskeletal: Cervical back: Neck supple. Lymphadenopathy: Cervical: No cervical adenopathy. Skin: General: Skin is warm and dry. Capillary Refill: Capillary refill takes less than 2 seconds. Neurological: General: No focal deficit present. Mental Status: He is alert and oriented to person, place, and time. Psychiatric: Mood and Affect: Mood normal. Results for orders placed or performed in visit on 07/03/24 POCT CEPHEID SARS COV-2 RNA + FLU A/B + RSV Result Value Ref Range SARS COV-2 RNA Negative Negative, Invalid INFLUENZA A Negative Negative, Invalid INFLUENZA B Negative Negative, Invalid RSV Negative Negative, Invalid Lot Number [id number] Expiration Date 04/09/25 SeriAl # Control Line Yes YES/NO POCT CEPHEID STREP A DNA Result Value Ref Range STREP A DNA Negative Negative, Invalid Lot Number [id number] Expiration Date 04/09/25 SeriAl # Control Line Yes YES/NO Assessment and Plan Saravanan was seen today for sore throat. Diagnoses and all orders for this visit: Acute cough - POCT CEPHEID SARS COV-2 RNA + FLU A/B + RSV - POCT CEPHEID STREP A DNA Sore throat - POCT CEPHEID SARS COV-2 RNA + FLU A/B + RSV - POCT CEPHEID STREP A DNA Viral upper respiratory tract infection Other orders - predniSONE (DELTASONE) 20 mg Oral Tablet; Take 1 Tablet by mouth daily for 5 days. - azelastine (ASTELIN) 137 mcg (0.1 %) Nasl [place], Non-Aerosol; 1 [place] in each nostril 2 times daily. Use in each nostril as directed - benzonatate (TESSALON) 200 mg Oral Capsule; Take 1 Capsule by mouth every 8 hours as needed for Cough. 59-year-old male presents to urgent care for evaluation of sore throat and congestion. He is afebrile and nontoxic-appearing. Test for COVID, strep, flu, RSV all negative. Discussed that symptoms arelikely viral in nature. Prescriptions for prednisone, Astelin nasal spray, and Tessalon sent to [facility]. Recommend supportive care at home with [id number] analgesics, increase fluids, salt water gargles, humidifier. Follow-up with PCP if not improving. Go to the ER for any trouble breathing or trouble swallowing. Given instructions on conservative care for this condition and signs and symptoms to follow-up on immediately. Return if symptoms worsen or fail to improve. Education provided regarding the care plan and instructions listed on the After Visit Summary [AVS]for today's visit. Full understanding of the care plan and instructions given on the AVS for today's visit was verbalized. Anni Arias APRN documented in this encounter Miscellaneous Notes * Patient Instructions - Anni Arias APRN - 07/03/2024 1:00 PM EDT Test for COVID, strep, flu, and RSV were negative. Symptoms are likely viral in nature. Continue daily Claritin. The following medications were sent to your pharmacy, take as directed: Prednisone: Take 1 tablet daily for 5 days Astelin nasal spray: 1 spray in each nostril twice daily Tessalon: Take 1 tablet every 8 hours as needed for cough Take Tylenol and ibuprofen as needed for pain Gargle warm salt water several times a day for sore throat. Cool-mist humidifier at night. Follow-up with primary care provider or return to urgent care if symptoms are not improving. Go to the emergency department for any trouble breathing or trouble swallowing. See below for further recommendations: What is a URI? An upper respiratory infection (URI) is a term used to describe an acute infection of the head and chest. Generally, it affects the nose, throat, airways, sinuses and/or ears. Symptoms usually worsen during the first 3-5 days, followed by gradual improvement. Most URIs resolve within 10-14 days, even without treatment. Treatment Antibiotics only work on bacterial infections. Because URIs usually are caused by viruses, antibiotics are not an effective treatment. Fortunately, there are many options that help alleviate symptomswhen used as directed. Nasal congestion, post nasal dripping, or sinus pressure: Use an oral decongestant, such as pseudoephedrine or Mucinex D to reduce nasal and sinus congestion. Decongestants are available at pharmacies. Decongestants should not be used by individuals with certain medical conditions. Nasal sprays, such as oxymetazoline (Afrin), can help relieve nasal discomfort, congestion, and/or pressure. Decongestant sprays should not be used longer than three consecutive days. Nasal rinsing with saline nasal spray or salt water (e.g., neti pot) can help relieve nasal dryness. Use a warm mist humidifier or take a steamy shower to increase moisture in the air and soothe oral and nasal tissues that become irritated with dry air. Sore throat: Use a pain reliever, such as acetaminophen (Tylenol) or ibuprofen (Advil). Gargle with salt water (1/4 tsp of salt dissolved in 8 oz of warm water). Salt water can be used asoften as you like. Throat lozenges or throat sprays (Cepacol lozenges or Chloroseptic spray) may bring some relief by increasing saliva production and lubricating your throat. Drink plenty of fluids (e.g., water, diluted juice, tea) to soothe your throat and to stay well hydrated. Coughing: Coughing often occurs during the later stages of a URI. It may be dry or produce phlegm or mucus. Medications that contain dextromethorphan (e.g., Robitussin DM, Mucinex DM, Delsym) may help to suppress a cough. Tea with honey, when taken regularly, can soothe a sore throat and help suppress a cough. Take care with medications Be familiar with the individual ingredients in every medication you take, so you treat your symptoms appropriately. Watch for ingredient overlap between products (e.g., acetaminophen, ibuprofen, pseudoephedrine). Don???t accidentally take too much of any ingredient. Don???t take medications longer than recommended. Follow any specific instructions given by your health care provider. This is especially important if you have an underlying health condition. If you have questions or concerns, ask a pharmacist for assistance or consult with your health careprovider. Note: generic medications contain the same active ingredients as name brands. Strengthen your immune system: Make sure you eat well (e.g., a healthy, balanced variety of foods). Avoid alcohol as it can directly suppress various immune responses. Stay away from cigarettes, and second hand smoke. Rest as much as possible and get plenty of sleep (at least 8 hours). Sometimes upper respiratory infections become worse instead of better. Secondary bacterial infections can develop that require further treatment (e.g., antibiotics). Do not delay seeking help if you experience any of the following symptoms: A fever greater than 101??F for longer than two days Breathing problems like feeling short of breath, having pain or tightness in your chest or wheezing(high pitched whistling sounds when you breath in) A cough that is painful, worsening or lasting longer than two weeks A bad sore throat that lasts longer than three days, or worsens. Very swollen glands in your neck that are not going away Pain in your face or teeth that is not improving after a few days of decongestant use A headache that lasts longer than a few days or is very severe A rash Persistent abdominal pain Significant drowsiness or confusion Reduce risk of spreading URI to others URI infections are contagious; help reduce the spread. Wash your hands frequently and/or use a hand mill controller after touching your face. Cover your mouth when coughing or sneezing. Avoid sharing items like cups and lip balm. documented in this encounter Plan of Treatment Not on file documented as of this encounter Procedures Procedure Name Priority Date/Time Associated Diagnosis Comments POCT CEPHEID SARS COV-2 RNA + FLU A/B + RSV Routine 07/03/2024 1:11 PM EDT Acute cough Sore throat POCT CEPHEID STREP A DNA Routine 07/03/2024 1:04 PM EDT Acute cough Sore throat documented in this encounter Results * POCT CEPHEID SARS COV-2 RNA + FLU A/B + RSV (07/03/2024 1:11 PM EDT) Pathologist [facility] SARS COV-2 RNA Negative Negative, Invalid SEP OFFICE INFLUENZA A Negative Negative, Invalid SEP OFFICE INFLUENZA B Negative Negative, Invalid SEP OFFICE RSV Negative Negative, Invalid SEP OFFICE Lot Number [id number] SEP OFFICE Expiration Date 04/09/25 SEP OFFICE SeriAl # SEP OFFICE Control Line Yes YES/NO SEP OFFICE 07/03/2024 1:11 PM EDT Anni Arias [employer] SUPERVISOR POINT OF CARE TEST ORDERABLE S Final Result SEP OFFICE * POCT CEPHEID STREP A DNA (07/03/2024 1:04 PM EDT) Pathologist [facility] STREP A DNA Negative Negative, Invalid SEP OFFICE Lot Number [id number] SEP OFFICE Expiration Date 04/09/25 SEP OFFICE SeriAl # SEP OFFICE Control Line Yes YES/NO SEP OFFICE 07/03/2024 1:04 PM EDT Anni Arias APRN POINT OF CARE TEST ORDERABLE S Final Result SEP OFFICE documented in this encounter Visit Diagnoses Diagnosis Acute cough- Primary Sore throat Acute pharyngitis Viral upper respiratory tract infection Acute upper respiratory infections of unspecified site documented in this encounter Historical Medications * This list may reflect changes made after this encounter. OZEMPIC 0.25 mg or 0.5 mg (2 mg/3 mL) SubQ Pen Injector inject 0.5 mg subcutaneously once a week 06/01/2024 added in this encounter
--- OUTSIDE RECORDS SUMMARY | 2024-07-15 06:00 | XMS_ITS ---
Author Organization [facility] Address [address] [facility] [address] [facility] [address] [place] [id number] Care Team Providers Care Sole Filler Name Role Phone Blanquita Klein Primary Care Provider Zeeshan Cabezas Unavailable [phone] Lidya Tse Unavailable [phone] Results Component Value Reference Range Notes Glycohemoglobin A1c (in hous e) (Not yet reviewed by provider) Interpretation:7.3 Performing Lab: Notes/Report: 7.3 glycohemoglobin 7.3% 5 - 6.5 % REASON FOR VISIT A1C draw Encounters Encounter Location Date Provider Diagnosis [facility] [address] [facility] [address] [facility] [address] [place] [id number] 07/15/2024 Lidya Tse Type 2 diabetes marylou itus without complication, unspecified buttermilk drier operator insulin use status E11.9 Assessments Encounter Date Diagnosis (ICD Code) Assessment Notes Treatment Notes Treatment Clinical Notes Section Notes 07/15/2024 Type 2 diabetes mellitus without complication, unspecified halfway insulin use status (ICD-10 - E11.9) Plan Of Treatment Pending Test Test Name Order Date Glycohemoglobin A1c (in house) Next Appt Details Provider Name:Lidya Mcknight y, 10/21/2024 09:00:00 AM, [address], [place], [id number], Progress Notes * VALERIE SINHADOB: 4 (59 yo M)Acc No.[id number]:07/15/2024 Patient: VALERIE BRADFORD Provider: MONICA Meredith :1965 A ge:59 Y S ex:Male Date:07/15/2024 Address:[address] [id number] Pcp:Blanquita Klein Subjective: * Chief Complaints: * 1 . A1C draw. * Medical History: Objective: * Vitals: Assessment: * Assessment: 1. T ype 2 diabetes mellitus without complication, unspecified buttermilk drier operator insulin use status - E11.9 (Primary) Plan: * Treatment: * Labs: * L ab: Glycohemoglobin A1c (in house) (Collection Date & Time - 07/15/2024) 7 .3 Value Reference Range g lycohemoglobin 7.3% 5 - 6.5 % * Ariella Gaspar 07/15/2024 10 :19:31 AM > * Procedure Codes: 3 6416 CAPILLARY BLOOD DRAW, [address]11 GLYCATED HEMOGLOBIN TEST, Modifiers: QW , 3051F HG A1C>EQUAL 7.0%<8.0% * Billing Information: * Visit Code: * Procedure Codes: 14925 CAPILLARY BLOOD DRAW. [address] GLYCATED HEMOGLOBIN TEST. Modifiers: QW 3051F HG A1C>EQUAL 7.0%<8.0%. * Electronic signature of MONICA Mays on 08/07/2024 at 10:02 PM EDT Sign off status: Pending * Provider: MONICA Meredith Date: 0 07/15/2024 Generated for Kameron ng/Fafadiag/eTransmitting on: 0 08/07/2024 10:02 PM EDT
[2024-08-07 21:52] VITALS: BP 166/99; PULSE 102; RESP 18; TEMP 36.7; O2SAT 100; BMI 22.2
--- NOTE | 2024-08-07 22:00 | PC.NURSE ---
hand soaking in cleansing solution.
--- NOTE | 2024-08-07 22:03 | XR_ITS ---
PROCEDURE INFORMATION: Exam: XR Left Hand Exam date and time: 08/07/2024 10:11 PM Age: 59 years old Clinical indication: Injury or trauma; Other: Crushing type injury L 3rd/4th digits TECHNIQUE: Imaging protocol: Radiologic exam of the left hand. Views: 3 or more views. COMPARISON: No relevant prior studies available. FINDINGS: Bones/joints: Normal. Soft tissues: Normal. IMPRESSION: No acute findings.
--- OUTSIDE RECORDS SUMMARY | 2024-08-07 22:03 | XMS_ITS | Clinical Summary ---
Author Organization [facility] Address [address] [place] [address] Phone Care Team Providers Care Publicity Writer Name Role Phone Unavailable Primary Care Provider Unavailabl e Allergies Active Allergy Reactions Criticality Noted Date Comments Penicillins Hives Medications metFORMIN (GLUCOPHAGE) 850 mg Oral Tablet Take by mouth 2 times daily. Active FARXIGA 10 mg Oral Tablet Take 10 mg by mouth daily. 03/02/19 Active fluticasone propionate (FLONASE) 50 mcg/actuation Nasl Elfrida, SuspensionIndi cations:Acute maxillary sinusitis, recurrence not specified 1 Elfrida by Nasal route daily. 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 60 Tablet 01/12/20 22 Active Additional Information Patient not taking.Reason: Therapy Completed, Reported on 11/09/2022 azithromycin (ZITHROMAX) 250 mg Oral TabletIndicati ons:Sinus drainage,Sinus congestion Take 2 tablets (500 mg) on Day 1, followed by 1 tablet (250 mg) once daily on Days 2 through 5. 6 Tablet 06/26/19 23 Active Additional Information Patient not taking.Reason: Therapy Completed, Reported on 11/09/2022 meloxicam (MOBIC) 15 mg Oral TabletIndicati ons:Dupuytren' s disease of palm of left hand,Mallet deformity of left little finger,Trigger index finger of left hand Take 1 Tablet by mouth daily. 30 Tablet 03/16/19 24 Active OZEMPIC 0.25 mg or 0.5 mg (2 mg/3 mL) SubQ Pen Injector inject 0.5 mg subcutaneously once a week 06/02/19 25 Active azelastine (ASTELIN) 137 mcg (0.1 %) Nasl Elfrida, Non-Aerosol 1 Elfrida in each nostril 2 times daily. Use in each nostril as directed 30 mL 07/04/19 25 Active benzonatate (TESSALON) 200 mg Oral Capsule Take 1 Capsule by mouth every 8 hours as needed for Cough. 15 Capsule 07/04/19 25 Active predniSONE (DELTASONE) 20 mg Oral Tablet Take 1 Tablet by mouth daily for 5 days. 5 Tablet 07/04/19 25 025 Active Problems Problem Noted Date Diagnosed Date Migraine 07/03/2024 Encounters Date Type Department Care Team Description 07/03/2024 1:00 PM EDT Office Visit [facility] [address] Anni Arias, ACTUARIAL ASSOCIATE Acute cough (Primary Dx); Sore throat; Viral upper respiratory tract infection 05/22/2024 6:42 AM EDT - 05/22/2024 11:59 PM EDT Hospital Encounter [facility] [address] [place] [address] Adam Villeda MD Other bursal cyst, left hand Discharge Disposition: Home or Self Care from Last 3 Months Immunizations Immunization Administration Dates Next Due Flucelvax 10/15/2023 Hepatitis A, Adult 11/07/2020 Influenza, Injectable, MDCK, PF, Quadrivalent ,11/07/2020 Tdap 06/03/2024,08/22/2019 Zoster Recombinant 03/05/2020 Social History Tobacco Use Types Packs/Day Years Used Date Smoking Tobacco: Never Smokeless Tobacco: Never Tobacco Cessation:Counseling Given: Not Answered Sex and Gender Information Value Date Recorded Sex Assigned at Not on file Legal Sex Male 12:33 PM EST Gender Identity Not on file Sexual Orientation Not on file Obstetrics History Last Filed Vital Signs Vital Sign Reading [...] Mass Index 22.24 07/03/2024 1:02 PM EDT Plan of Treatment Health Maintenance Due Date Last Done Comments Annual Wellness Exam 06/18/1966 Hepatitis C Screening 06/18/1981 Cologuard 06/18/2008 Colon Cancer Screening 06/18/2008 Colonoscopy 06/18/2008 FIT 06/18/2008 Sigmoidoscopy 06/18/2008 Virtual Colonography 06/18/2008 Pneumococcal Vaccine 50+ (1 of 1 - PCV) 06/18/2013 Zoster (2 of 2) 04/30/2020 03/05/2020 RSV or 60+ (1 - Ris k 60-74 years 1-dose series) 2023 COVID-19 Vaccine (4 - 2023-2 5 season) 2023 12/05/2022, 05/30/2020, 05/02/2020 DTaP/TDaP/Td (3 - Td or Tdap) 06/03/2034, 08/22/2019 Influenza Vaccine Completed 10/15/2023, 11/28/2022, 11/07/2020 Hepatitis B Vaccine Aged Out No longe r eligible based on patient's age to complete this topic Meningococcal B Vaccine Aged Out No l onger eligible based on patient's age to complete this topic Procedures Procedure Name Priority Date/Time Associated Diagnosis Comments POCT CEPHEID SARS COV-2 RNA + FLU A/B + RSV Routine 07/03/2024 1:11 PM EDT Acute cough Sore throat POCT CEPHEID STREP A DNA Routine 07/03/2024 1:04 PM EDT Acute cough Sore throat MRI HAND LEFT WO CONTRAST Routine 05/22/2024 7:42 AM EDT Other bursal cyst, left hand from Last 3 Months Results * POCT CEPHEID SARS COV-2 RNA + FLU A/B + RSV (07/03/2024 1:11 PM EDT) SARS COV-2 RNA Negative Negative, Invalid [facility] INFLUENZA A Negative Negative, Invalid [facility] INFLUENZA B Negative Negative, Invalid [facility] RSV Negative Negative, Invalid [facility] Lot Number [id number] [facility] Expiration Date 04/09/25 [facility] SeriAl # [facility] Control Line Yes YES/NO [facility] 07/03/2024 1:11 PM EDT Anni Arias ACTUARIAL ASSOCIATE POINT OF CARE TEST ORDERABLE S Final Result [facility] * POCT CEPHEID STREP A DNA (07/03/2024 1:04 PM EDT) STREP A DNA Negative Negative, Invalid [facility] Lot Number [id number] [facility] Expiration Date 04/09/25 [facility] SeriAl # [facility] Control Line Yes YES/NO [facility] 07/03/2024 1:04 PM EDT us Anni Arias ACTUARIAL ASSOCIATE POINT OF CARE TEST ORDERABLE S Final Result [facility] * MRI HAND LEFT WO CONTRAST (05/22/2024 7:42 AM EDT) Anatomical Region Laterality Modality Elbow, Fingers, Wrist Joint Magn etic Resonance 05/22/2024 7:42 AM EDT Impressions 05/22/2024 9:08 AM EDT 1. No abnormality identified deep to the skin marker placed at the volar aspect of the second metacarpal head indicating the site of the palpable lump. 2. No acute osseous abnormality, significant degenerative changes, or evidence of inflammatory arthropathy. Artifactual hyperintense signal of the thumb proximal phalanx on the PD FS sequences as described. Narrative 05/22/2024 9:08 AM EDT MRI HAND LEFT WO CONTRAST, 05/22/2024 7:42 AM CLINICAL HISTORY: M71.342-Other bursal cyst, left [id number] COMPARISON: Left hand radiograph 05/18/2023 at [facility]. PROCEDURE COMMENTS: Multiplanar, multisequence MR images were obtained of the hand without contrast. FINDINGS: BONES/JOINTS: There is diffuse hyperintense signal throughout the thumb proximal phalanx on the proton density fat-saturated sequences, although marrow signal is normal on the T1 and STIR sequences, suggesting this relates to regional incomplete fat saturation. No acute fracture, osteolytic defect, or periostitis is present. The joints are normally aligned and well-maintained. There are small benign cysts in the third metacarpal head. SOFT TISSUES: A skin marker was placed along the volar aspect of the hand at the level of the second metacarpal head. The underlying soft tissues are normal with no solid-appearing mass or fluid collection. The flexor and extensor tendons are intact without evidence of tearing, significant tendinosis, or tenosynovitis. Procedure Note Petey Canada MD - 05/22/2024 MRI HAND LEFT WO CONTRAST, 05/22/2024 7:42 AM CLINICAL HISTORY: M71.342-Other bursal cyst, left [id number] COMPARISON: Left hand radiograph 05/18/2023 at [facility]. PROCEDURE COMMENTS: Multiplanar, multisequence MR images were obtained ofthe hand without contrast. FINDINGS: BONES/JOINTS: There is diffuse hyperintense signal throughout the thumbproximal phalanx on the proton density fat-saturated sequences, although marrowsignal is normal on the T1 and STIR sequences, suggesting this relates to regional incomplete fat saturation. No acute fracture, osteolytic defect, orperiostitis is present. The joints are normally aligned and well-maintained. There aresmall benign cysts in the third metacarpal head. SOFT TISSUES: A skin marker was placed along the volar aspect of the handat the level of the second metacarpal head. The underlying soft tissues arenormal with no solid-appearing mass or fluid collection. The flexor and extensortendons are intact without evidence of tearing, significant tendinosis, ortenosynovitis. IMPRESSION: 1. No abnormality identified deep to the skin marker placed at the volaraspect of the second metacarpal head indicating the site of the palpable lump. 2. No acute osseous abnormality, significant degenerative changes, orevidence of inflammatory arthropathy. Artifactual hyperintense signal of thethumb proximal phalanx on the PD FS sequences as described. Adam Villeda MD IMG MRI ORDERABLES Final Result from Last [address] [place] [address] [facility] [address] [place] [address] [employer] [facility] [place] [address] [place], [place] [id number]
--- OUTSIDE RECORDS SUMMARY | 2024-08-07 22:04 | XMS_ITS | Patient Health Record ---
Author Organization [facility] Address [address] [place] [id number] Care Team Providers Care Fisheries Officer Name Role Phone Blanquita Klein Primary Care Provider Zeeshan Cabezas Unavailable [phone] Jovanna Royal Unavailable [phone] Cairna Zazueta Unavailable [phone] Lidya Tse Unavailable [phone] Allergies Allergen (clinical drug ingredient) Drug/Non Drug Allergy documented on EMR Reaction Allergy Type Onset Date Status cefuroxime Cefuroxime Axetil hives Drug Allergy Active ciprofloxacin Cipro body aches, mouth ulcers Drug Allergy Active Penicillin Unknown Drug Allergy Active Results Component Value Reference Range Notes Glycohemoglobin A1c (in hous e) (Not yet reviewed by provider) Interpretation:7.3 Performing Lab: Notes/Report: 7.3 glycohemoglobin 7.3% 5 - 6.5 % CBC Venipuncture (in house) Reviewed date:04/21/2024 09:22:16 AM Interpretation: Performing Lab: Notes/Report: wbc 6.4 3.5 - 10 lymph 25.6% 15 - 50 mid 6.6% 2 - 15 gran 67.8% 35 - 80 rbc 5.12 3.5 - 5.5 hgb 15.0 11.5 - 16.5 hct 44.7 35 - 55 mcv 87.2 75 - 100 mch 29.3 25 - 35 mchc 33.5 31 - 38 platlet 181 100 - 400 Glycohemoglobin A1c (in hous e) Reviewed date:04/26/2024 08:36:56 AM Interpretation:8 Performing Lab: Notes/Report: 8 glycohemoglobin 8.0% 5 - 6.5 % P-Comprehensive Metabolic [place] (CMP) Reviewed date:04/26/2024 08:36:56 AM Interpretation:co2- 21. gluc 155 Performing Lab: Notes/Report: Test performed by [facility] [address] [place] [address] , [address], [place] [address] Hamzah Goldman MD, Methods Engineer CLIA: [id number] Sodium 141 135-145 mmol/L Potassium 4.7 3.5-5.3 mmol/L Chloride 105 97-108 mmol/L CO2 21 22-32 mmol/L Glucose 155 65-99 mg/dL BUN 10 8-23 mg/dL Creatinine 0.92 0.70-1.30 mg/dL Calcium 9.7 8.6-10.4 mg/dL eGFR by Creatinine 95 >59 mL/min/1.73m2 Protein 7.5 6.0-8.3 g/dL Albumin 5.1 3.5-5.3 g/dL Alkaline Phosphatase 98 40-129 IU/L ALT (SGPT) 17 <5-55 IU/L AST (SGOT) 15 <5-46 IU/L Bilirubin, Total 0.3 <0.2-1.2 mg/dL A/G Ratio 2.1 1.1-2.5 P-Lipid Panel Reviewed date:04/26/2024 08:36:56 AM Interpretation:Normal Performing Lab: Notes/Report: Test performed by [facility] [address] [place] [address] , [address], [place] [address] Hamzah Goldman MD, Methods Engineer CLIA: [id number] Cholesterol 155 <200 mg/dL Triglycerides 130 <150 mg/dL HDL Cholesterol 40 >39 mg/dL Cholesterol / HDL Ratio 3.88 0.00-4.99 Ratio Non-HDL Cholesterol 115 <130 mg/dL LDL Cholesterol (Calculation) 89 <130 mg/dL LDL Cholesterol Levels* Less than 100 mg/dL Optimal 100 to 129 mg/dL Near Optimal/ Above Optimal 130 to 159 mg/dL Borderline High 160 to 189 mg/dL High 190 mg/dL and above Very High * Categories as recommended by the 2004 ATPIII guidelines LDL/HDL Ratio 2.2 <3.3 Ratio LDL Cholesterol Patient History Test Date: 04/16/2023 LDL Results: 75 Units: mg/dL % Change: - Test Date: 10/15/2023 LDL Results: 87 Units: mg/dL % Change: +16% Test Date: 04/20/2024 LDL Results: 89 Units: mg/dL % Change: +2% P-PSA Reviewed date:04/26/2024 08:36:56 AM Interpretation:Normal Performing Lab: Notes/Report: Test performed by [facility] [address] [facility] , [address], [place] [address] Hamzah Goldman MD, Methods Engineer CLIA: [id number] PSA 1.24 <4.00 ng/mL Please note this is an ultrasensitive PSA assay with a lower limit of detection of 0.014 ng/mL. This test is performed by the Larry ECLIA methodology. Values obtained with different assay methods or kits cannot be directly compared. Influenza Screen (in house) Reviewed date:01/11/2024 07:30:56 PM Interpretation:neg Performing Lab: Notes/Report: neg results neg Rapid Strep- Inhouse Reviewed date:01/11/2024 07:31:14 PM Interpretation:neg Performing Lab: Notes/Report: neg strep test neg CBC Fingerstick (in house) Reviewed date:01/11/2024 07:31:34 PM Interpretation: Performing Lab: Notes/Report: wbc 9.5 3.5 - 10 lym 20.5 15 - 50 mid 5.8 2 - 15 gran 73.7 35 - 80 rbc 4.98 3.5 - 5.5 hgb 15.1 11.5 - 16.5 hct 45.1 35 - 55 mcv 90.5 75 - 100 mch 30.3 25 - 35 mchc 33.5 31 - 38 plat 144 100 - 400 Covid test (in house) Reviewed date:01/11/2024 07:30:25 PM Interpretation:neg Performing Lab: Notes/Report: neg Result: neg Rapid Strep- Inhouse Reviewed date:01/18/2024 07:56:25 PM Interpretation:neg Performing Lab: Notes/Report: neg strep test neg CBC Fingerstick (in house) Reviewed date:01/18/2024 07:56:11 PM Interpretation: Performing Lab: Notes/Report: wbc 11.4 3.5 - 10 lym 20.2 15 - 50 mid 6.3 2 - 15 gran 73.5 35 - 80 rbc 5.24 3.5 - 5.5 hgb 15.7 11.5 - 16.5 hct 47.4 35 - 55 mcv 90.5 75 - 100 mch 29.9 25 - 35 mchc 33.1 31 - 38 plat 195 100 - 400 Influenza Screen (in house) Reviewed date:03/04/2024 12:29:50 PM Interpretation:neg Performing Lab: Notes/Report: neg results neg Rapid Strep- Inhouse Reviewed date:03/04/2024 12:29:24 PM Interpretation:neg Performing Lab: Notes/Report: neg strep test neg CBC Fingerstick (in house) Reviewed date:03/04/2024 12:30:06 PM Interpretation: Performing Lab: Notes/Report: wbc 7.3 3.5 - 10 lym 25.0 15 - 50 mid 6.9 2 - 15 gran 68.1 35 - 80 rbc 5.00 3.5 - 5.5 hgb 14.9 11.5 - 16.5 hct 44.2 35 - 55 mcv 88.3 75 - 100 mch 29.8 25 - 35 mchc 33.8 31 - 38 plat 137 100 - 400 Covid test (in house) Reviewed date:03/04/2024 12:29:37 PM Interpretation:neg Performing Lab: Notes/Report: neg Result: neg CBC Fingerstick (in house) Reviewed date:10/25/2023 10:20:43 PM Interpretation: Performing Lab: Notes/Report: wbc 8.7 3.5 - 10 lym 19.8 15 - 50 mid 4.8 2 - 15 gran 75.4 35 - 80 rbc 4.49 3.5 - 5.5 hgb 13.6 11.5 - 16.5 hct 42.2 35 - 55 mcv 93.9 75 - 100 mch 30.3 25 - 35 mchc 32.2 31 - 38 plat 152 100 - 400 Covid test (in house) Reviewed date:10/29/2023 02:01:53 PM Interpretation:Negative Performing Lab: Notes/Report: Negative Result: neg CBC Fingerstick (in house) Reviewed date:10/16/2023 11:08:02 AM Interpretation: Performing Lab: Notes/Report: wbc 6.9 3.5 - 10 lym 28.1% 15 - 50 mid 6.5% 2 - 15 gran 65.4% 35 - 80 rbc 4.90 3.5 - 5.5 hgb 14.9 11.5 - 16.5 hct 44.4 35 - 55 mcv 90.7 75 - 100 mch 30.5 25 - 35 mchc 33.6 31 - 38 plat 181 100 - 400 Glycohemoglobin A1c (in hous e) Reviewed date:10/19/2023 08:06:35 PM Interpretation:8.1% Performing Lab: Notes/Report: 8.1% glycohemoglobin 8.1% 5 - 6.5 % P-Comprehensive Metabolic Pa no[place] (CMP) Reviewed date:10/19/2023 08:06:35 PM Interpretation:gluc 145 Performing Lab: Notes/Report: Test performed by [facility] [address] [place] [address] [address], [place] [address] Hamzah Goldman MD, Methods Engineer CLIA: [id number] Sodium 143 135-145 mmol/L Potassium 4.1 3.5-5.3 mmol/L Chloride 106 97-108 mmol/L CO2 26 22-32 mmol/L Glucose 145 65-99 mg/dL BUN 11 8-23 mg/dL Creatinine 0.77 0.70-1.30 mg/dL Calcium 9.2 8.6-10.4 mg/dL eGFR by Creatinine 102 >59 mL/min/1.73m2 Protein 6.9 6.0-8.3 g/dL Albumin 4.7 3.5-5.3 g/dL Alkaline Phosphatase 99 40-129 IU/L ALT (SGPT) 18 <5-55 IU/L AST (SGOT) 16 <5-46 IU/L Bilirubin, Total 0.6 <0.2-1.2 mg/dL A/G Ratio 2.1 1.1-2.5 P-Lipid Panel Reviewed date:10/19/2023 08:06:35 PM Interpretation:hdl 30 Performing Lab: Notes/Report: Test performed by [facility] [address] [place] [address] [address], [place] [address] Hamzah Goldman MD, Methods Engineer CLIA: [id number] Cholesterol 145 <200 mg/dL Triglycerides 139 <150 mg/dL HDL Cholesterol 30 >39 mg/dL Cholesterol / HDL Ratio 4.83 0.00-4.99 Ratio Non-HDL Cholesterol 115 <130 mg/dL LDL Cholesterol (Calculation) 87 <130 mg/dL LDL Cholesterol Levels* Less than 100 mg/dL Optimal 100 to 129 mg/dL Near Optimal/ Above Optimal 130 to 159 mg/dL Borderline High 160 to 189 mg/dL High 190 mg/dL and above Very High * Categories as recommended by the 2004 ATPIII guidelines LDL/HDL Ratio 2.9 <3.3 Ratio LDL Cholesterol Patient History Test Date: 04/16/2023 LDL Results: 75 Units: mg/dL % Change: - Test Date: 10/15/2023 LDL Results: 87 Units: mg/dL % Change: +16% P-Microalbumin/Creatinine, R andom Urine Sample Reviewed date:10/19/2023 08:06:35 PM Interpretation:Normal Performing Lab: Notes/Report: Test performed by [facility], [address] , [place] [address] Hamzah Goldman MD, Methods Engineer CLIA: [id number] Albumin/Creatinine Ratio, Urine 11 0-30 ug/m g Microalbumin, Urine, Random 0.8 Creatinine, Urine 70.0 Medications Medication SIG (Take, Route, Frequency, Duration) Notes Start Date End Date Status Clindamycin HCl 300 MG 1 capsule Orally Three times a day for 10 day(s) Active Ozempic (0.25 or 0.5 MG/DOSE) 2 MG/3ML 0.5 mg once a week for 28 days Active Flonase Allergy Relief 50 MCG/ACT 1 spray in each nostril Nasally Twice a day 03/04/2024 Active Multivitamin 1 TAB ONCE A DAY Active Xigduo XR 5-1000 MG 1 tablet Orally Two times a day for 90 days Active Blood Glucose Test - as directed to test twice daily Diagnosis: E11.65 03/12/2023 Active Betamethasone Dipropionate Aug 0.05 % 1 application Externally Two times a day 10/15/2023 Active Betamethasone Dipropionate Aug 0.05 % 1 juan josé applied topically 2 times a day 07/17/2022 Active Blood Glucose Monitoring Suppl w/Device as directed to test twice daily Diagnosis: E11.03/12/2023 Active Immunizations Vaccine Route Administration Date Status Comme nts Morphine 10mg/ml IM Intramuscular 05/16/2005 Administered Morphine 10mg/ml IM Intramuscular 03/31/2006 Administered Tetanus-DT IM Intramuscular 10/26/2009 Administered Tetanus Tdap-Adacel (over 7yrs) IM Intramuscular 08/22/2019 Administered Shingrix Unknown 12/17/2019 Administered Shingrix Unknown 03/05/2020 Administered Shingrix Unknown 03/05/2020 Administered PNEUMOVAX 23 VACCINE IM Intramuscular 12/30/2019 Administe red Hepatitis A (adult) IM Intramuscular 12/30/2019 Administer ed Hepatitis A (adult) Unknown 11/07/2020 Administered Fluzone Quad (6months&older) Unknown 12/17/2019 Administered Fluzone Quad (6months&older) Unknown 11/28/2022 Administered flucelvax Unknown 11/07/2020 Administered COVID 19 Moderna Unknown 05/02/2020 Administered COVID 19 Moderna Unknown 05/30/2020 Administered Problems Problem Type SNOMED Code ICD Code Onset Dates Problem Status W/U Status Risk Notes Problem Essential hypertension (69720386) Essential (primary) hypertension (I10) Active confirmed Problem Leukocytosis (678526755) Leukocytosis (D72.829) Active confirmed Problem 973145345 Hypertriglycerid emia (E78.1) Active confirmed Problem 399553489 Seasonal allergi es (J30.2) Active confirmed Problem 681456289 Male erectile di sorder (N52.9) Active confirmed Problem 625372559 Erectile dysfunc tion, unspecified erectile dysfunction type (N52.9) Active confirmed Problem 55770796 Type 2 diabetes mellitus without complication, unspecified ferry terminal agent insulin use status (E11.9) Active confirmed Problem 845865559 Uncontrolled typ e 2 diabetes mellitus with hyperglycemia (E11.65) Active confirmed Problem 781874640 Dupuytren's fibromatosis (M72.0) Active confirmed Vital Signs Heart Rate 82 /min 06/16/2024 Blood pressure diastolic 78 mm Hg 06/16/2024 Height 70.50 in 06/16/2024 Blood pressure systolic 120 mm Hg 06/16/2024 Weight 156.6 lbs 06/16/2024 BMI 22.15 kg/m2 06/16/2024 Encounters Encounter Location Date Provider Diagnosis [facility] [address] [place] [id number] 10/15/2023 Blanquita Jourdan Brusht Type 2 diabetes marylou itus without complication, unspecified ferry terminal agent insulin use status E11.9 ; Hypertriglyceridemia E78.1 and Acute sinusitis J01.90 [facility] [address] [place] [id number] 10/23/2023 Lidya Crowdy Acute URI J06.9 [facility] [address] [place], [place] [id number] 11/13/2023 Lidya Crowdy Pain of maxillary si nus J34.89 and Closed fracture of tooth, initial encounter S02.5XXA [facility] [address] [place], [place] [id number] 01/11/2024 Carina Zazueta URI (upper respiratory infection) J06.9 [facility] [address] [place], [place] [id number] 01/18/2024 Carina Zazueta Sore throat J02.9 and Leukocytosis D72.829 [facility] [address] [place], [place] [id number] 03/04/2024 Lidya Crowdy Non-recurrent acute serous otitis media of right ear H65.01 and Sore throat J02.9 [facility] [address] [place], [place] [id number] 04/20/2024 Lidya Crowdy Pain of maxillary si nus J34.89 ; Closed fracture of tooth, initial encounter S02.5XXA ; Type 2 diabetes mellitus without complication, unspecified residential insulin use status E11.9 ; Hypertriglyceridemia E78.1 ; Essential (primary) hypertension I10 ; Dupuytren's fibromatosis M72.0 and Prostate cancer screening Z12.5 [facility] [address] [place], [place] [id number] 06/16/2024 Lidya Tse Visit for suture rem oval Z48.02 [facility] [address] [place], [place] [id number] 07/15/2024 Lidya Tse Type 2 diabetes marylou itus without complication, unspecified ferry terminal agent insulin use status E11.9 [facility] [address] [place], [place] [id number] 10/19/2023 R Jourdan Ernie [facility] [address] [place], [place] [id number] 04/18/2024 R Jourdan Ernie [facility] [address] [place], [place] [id number] 04/22/2024 Lidya Gerardody [facility] [address] [place], [place] [id number] 04/22/2024 Lidya Crowdy [facility] [address] [place], [place] [id number] 04/25/2024 R Jourdan Ernie [facility] [address] [place], [place] [id number] 04/27/2024 Lidya Crowdy [facility] [address] [place], [place] [id number] 05/11/2024 Lidya Crowdy [facility] [address] [place], [place] [id number] 05/13/2024 R Jourdan Ernie [facility] [address] [place], [place] [id number] 07/14/2024 R Jourdan Renie Assessments Encounter Date Diagnosis (ICD Code) Assessment Notes Treatment Notes Treatment Clinical Notes Section Notes 10/23/2023 Acute URI (ICD-10 - J06.9) 01/18/2024 Leukocytosis (ICD-10 - D72.829) 01/18/2024 Sore throat (ICD-10 - J02.9) has completed Zithromax and took 5 doses of Ceftin; will try Doxy; continue with good fluid intake; he requests a steriod shot; he will gargle hot water q2h [place] 03/04/2024 Sore throat (ICD-10 - J02.9) He is finishing his zithromax. 03/04/2024 Non-recurrent acute serous otitis media of right ear (ICD-10 - H65.01) 04/20/2024 Pain of maxillary si nus (ICD-10 - J34.89) Will start on abx. 07/15/2024 Type 2 diabetes marylou itus without complication, unspecified residential insulin use status (ICD-10 - E11.9) 04/20/2024 Closed fracture of tooth, initial encounter (ICD-10 - S02.5XXA) Having tooth fixed in a few weeks. 10/15/2023 Hypertriglyceridemia (ICD-10 - E78.1) 10/15/2023 Type 2 diabetes marylou itus without complication, unspecified residential insulin use status (ICD-10 - E11.9) 06/16/2024 Visit for suture rem oval (ICD-10 - Z48.02) Sutures removed without difficulty. 01/11/2024 URI (upper respirato ry infection) (ICD-10 - J06.9) fluids, rest, supportive measures for fever/symptom relief 11/13/2023 Closed fracture of tooth, initial encounter (ICD-10 - S02.5XXA) Will get in to see the dentist for the broken tooth. 11/13/2023 Pain of maxillary si nus (ICD-10 - J34.89) Will start on abx. 10/15/2023 Acute sinusitis (ICD -10 - J01.90) 04/20/2024 Type 2 diabetes marylou itus without complication, unspecified residential insulin use status (ICD-10 - E11.9) 04/20/2024 Hypertriglyceridemia (ICD-10 - E78.1) 04/20/2024 Essential (primary) hypertension (ICD-10 - I10) 04/20/2024 Dupuytren's fibromat osis (ICD-10 - M72.0) Patient has appt with hand specialist. 04/20/2024 Prostate cancer screening (ICD-10 - Z12.5) Plan Of Treatment Pending Test Test Name Order Date Glycohemoglobin A1c (in house) Next Appt Details Provider Name:Lidya Pollack Roxanna l[place], 10/21/2024 09:00:00 AM, [address], [address], [place], [place], [id number], Insurance Providers Payer Name Payer Address Payer Phone Subscriber Number Group Number Insured Name Patient Relationship to Insured Coverage Start Date Coverage End Date [employer] [facility] [address] [place], [place] [phone] [id number] VALERIE SINHA Self - patient is the insured Medications Administered Medication Instructions Date of Administration Dosage Notes Depo- Medrol 40 mg/ml 10/22/2010 1.5 mL Depo- Medrol 40 mg/ml 06/10/2011 1.5 mL Depo- Medrol 40 mg/ml 04/26/2013 1.5 mL Depo- Medrol 40 mg/ml 12/29/2016 1.5 mL Dexamethasone 10/26/2008 1 mL Dexamethasone 03/02/2009 1 mL Dexamethasone 03/05/2009 0.5 Dexamethasone 03/19/2009 1 mL Dexamethasone 06/11/2013 1 mL Dexamethasone 06/14/2013 Dexamethasone 10/26/2014 1 mL Dexamethasone 11/07/2014 1 mL Dexamethasone 12/04/2015 1 mL Dexamethasone 12/13/2015 1 mL Dexamethasone 12/27/2015 1 mL Dexamethasone 03/11/2016 1 mL Dexamethasone 04/01/2016 1 mL Dexamethasone 06/03/2016 1 mL Dexamethasone 10/10/2016 1 mL Dexamethasone 10/16/2016 1 mL Dexamethasone 03/23/2017 1 mL Dexamethasone 05/14/2017 1 mL Dexamethasone 05/18/2017 1 mL Dexamethasone 03/22/2018 1 mL Dexamethasone 04/14/2019 1 mL Dexamethasone 01/21/2022 1 mL Dexamethasone 01/24/2022 1 mL Dexamethasone 05/28/2023 1 mL Dexamethasone 10/15/2023 1 mL Dexamethasone 01/18/2024 1 mL Dexamethasone 03/04/2024 1 mL Morphine 11/04/2007 5 mg Morphine 12/22/2007 5 mg Morphine 11/27/2010 Morphine 03/19/2011 5 mg Morphine 12/15/2011 5 mg Morphine 08/24/2012 Morphine 08/16/2015 4 mg Phenergan 12.5 mgs. IM 05/16/2005 25 mg phenergan 25 mg/ml 03/31/2006 1 mL phenergan 25 mg/ml 11/04/2007 25 mg phenergan 25 mg/ml 12/22/2007 25 mg phenergan 25 mg/ml 11/27/2010 phenergan 25 mg/ml 03/19/2011 1 mL phenergan 25 mg/ml 12/15/2011 25 mg phenergan 25 mg/ml 08/16/2015 1 mL stadol 09/21/2006 2 mg Toradol 05/28/2018 1 mg Vistaril 50 mg 09/21/2006 50 mg Medical (General) History Medical History History ICD Code Migraines Type 2 Diabetes Hypertension Hypertriglyceridemia Vikings Disease (Dupuytren's Contracture s) Surgical History Surgery Date(Month/Year) LT Ear Basal Cell Removal- Dr Tompkins 02/04 14 Hospitalization History Reason Date(Month/Year) Fever- [facility] 10/2014
[2024-08-07] MEDS: LIDOCAINE 1% 10ML MDV 10 ML IJ (22:12)
[2024-08-07] MEDS: ACETAMINOPHEN 500MG TAB 1000 MG PO (22:12)
[2024-08-07] MEDS: IBUPROFEN 400 MG TABLET 800 MG PO (22:13)
--- NOTE | 2024-08-07 23:04 | PC.NURSE ---
provider at the bedside for lac repair at this time.
[2024-08-07] MEDS: BACITRACIN OINT 0.9GM UDP 1 EACH TP (23:33)
[2024-08-07 23:58] VITALS: BP 154/109; PULSE 68; RESP 18; TEMP 37.2; O2SAT 100
--- NOTE | 2024-08-08 00:08 | ED_ITS ---
Discharge Plan Disposition Patient Disposition: Home, Self-Care Condition: Good Prescriptions Prescriptions: No Action clindamycin HCl 300 mg capsule 300 mg PO Patient Comments: TAKE ONE CAPSULE BY MOUTH EVERY 6 HOURS -- FINISH ALL MEDICINE -- tadalafil [Cialis] 5 mg tablet 5 mg PO DAILY 30 Days Qty: 30 3RF cephalexin 500 mg capsule 500 mg PO BID 7 Days Qty: 14 0RF Referrals Follow up/Referrals: Aaron Klein MD [Primary Care Provider, Medical] - See instructions Activity Restrictions/Add. Instructions Additional Instructions/Restrictions: You were evaluated in the emergency department today. Please keep your wound clean and dry. Do not submerge under any water. Apply nonadherent dressing. Sutures will need to be removed in about 8 to 10 days. Follow-up closely with your primary care provider for wound recheck. Monitor for any signs of infection such as redness, warmth, or pus draining from the wound. Return to the emergency department for new or worsening symptoms. Clinical Impressions Clinical Impression: Laceration of finger Stand Alone Forms Stand Alone Forms: Work/School Release Instructions Patient Instructions: DI for Laceration Repair Print Language Print Language: Ukrainian Discharge ED Provider: Devora Dangelo General Adult HPI General Chief complaint: Wound/Laceration Stated complaint: L hand Middle Finger Laceration Time Seen by Provider: 08/07/24 21:49 Mode of Arrival: Ambulatory Source of Information: Patient and Spouse Description of Symptoms (Recalled from ER Triage Doc. by RN): Pt presents for eval of laceration and smash injury to left 3rd finger that occured when she smashed it with a independent contractor. Pt reports tetanus shot is UTD to recent laceration to another finger. History of Present Illness HPI narrative: This patient is a 59-year-old male presenting to the emergency department for evaluation of concern for laceration to his left middle finger. Patient reports that he smashed his finger while trying to bury a post with a postal digger. He states that his last tetanus shot was about 2 months ago. He denies any other concerns or complaints. This happened just prior to arrival Related Data Home Medications ?Medication ?Instructions ?Recorded ?Confirmed clindamycin HCl 300 mg capsule 300 mg PO 02/01/2401/16 Previous Rx's ?Medication ?Instructions ?Recorded tadalafil 5 mg tablet (Cialis) 5 mg PO DAILY 30 days # 30 tabs 02/01/24 cephalexin 500 mg capsule 500 mg PO BID 7 days #14 cap s 06/03/24 Allergies Allergy/AdvReac Type Severity Reaction Status Date / Time Penicillins Allergy Unknown Verified 02/01/24 09:25 [facility] Disclaimer: The information contained in this section may have been updated after the patient was seen, as this information can be updated by other users. Social History Smoking Status: Never smoker alcohol intake: never current occupational status: employed Travel in the last 8 weeks?: None Have you lived/traveled outside [place] in past 30 days?: No Contact w/someone who lives/traveled outside [place] past 30 days?: No Exposure to someone with infectious disease in past 14 days?: No Do you have a fever (greater than 100.4 F or 38 C)?: No Have you tested positive for COVID-19?: No Exposed to someone with COVID-19 in past 14 days?: No Do you have a sore throat?: No Do you have a cough?: No Do you have any weakness?: No Do you have any diarrhea?: No Are you experiencing any unusual bleeding?: No Do you have any muscle aches/pain?: No Do you have any abdominal pain?: No Are you experiencing loss of taste or smell?: No Other Medical History Have you received the Pneumonia Vaccine: Yes ROS Obtained: Yes All systems reviewed & no additional complaints except as documented Physical Exam General General appearance: alert and in no apparent distress Head Head exam: atraumatic and normocephalic Eye Eye exam: Present normal appearance, PERRL and EOMI ENT ENT exam: Present normal exam, normal oropharynx, mucous membranes moist and normal external ear exam Neck Neck exam: Present normal inspection, full ROM and trachea midline; Absent tenderness Chest Chest inspection: Present normal inspection and symmetric chest wall rise; Absent tenderness Respiratory Respiratory exam: Present normal lung sounds bilaterally; Absent respiratory distress, wheezes, stridor or accessory muscle use Cardiovascular Cardiovascular exam: Present regular rate and normal rhythm Abdominal Exam Abdominal exam: Present soft; Absent distention, tenderness or guarding Extremities Exam Extremities exam: Present full ROM, tenderness and normal capillary refill; Absent edema Expanded Upper Extremity Exam Left: Hand L/R back image: 2 1. Large irregular stellate laceration 2. Superficial abrasion Back Exam Back exam: Present normal inspection and full ROM; Absent tenderness Neurological Exam Neurological exam: Present alert, oriented X3, CN II-XII intact and normal gait; Absent motor sensory deficit Psychiatric Psychiatric exam: Present normal affect and normal mood Skin Skin exam: Present warm and dry Medical Decision Making Medical Records Medical records reviewed: Yes I reviewed the patient's medical records. Screening: Per USPSTF and CDC recommendations, given the prevalence of disease in our region, it is our hospital?s policy to screen for HIV and viral Hepatitis for all patients aged 18 and over and those with ongoing risk factors. Matt Inquiry Pt receiving controlled substance: No Vital Signs: 08/07/24 21:52 08/07/24 23:58 Temperature 98.1 F 99 F Temperature Source Oral Oral Pulse Rate 68 Pulse Rate [Radial] 102 H Respiratory Rate 18 18 Blood Pressure 154/109 H Blood Pressure [Right Arm] 166/99 H Blood Pressure Mean [Right Arm] 121 Blood Pressure Position Sitting Blood Pressure Position [Right Arm] Sitting 02 Sat by Pulse Oximetry 100 Oxygen Delivery Method Room Air Room Air Lab Data Lab results reviewed: Yes I reviewed the patient's lab results. Orders (Tests/Meds): ED MEDICATIONS Discontinued Medications Generic Name Dose Route Start Last Admin Trade Name Freq PRN Reason Stop Dose Admin Acetaminophen 1,000 mg 08/07/24 22:04 08/07/24 22:12 Acetaminophen 500mg Tab PO 08/07/24 22:05 1,000 mg ONCE ONE Administration Bacitracin 1 each 08/07/24 23:22 08/07/24 23:33 Bacitracin Oint 0.9gm Udp TP 08/07/24 23:23 1 each ONCE ONE Administration Ibuprofen 800 mg 08/07/24 22:04 08/07/24 22:13 Ibuprofen 400 Mg Tablet PO 08/07/24 22:05 800 mg ONCE ONE Administration Lidocaine HCl 10 ml 08/07/24 22:03 08/07/24 22:12 Lidocaine 1% 10ml Mdv IJ 08/07/24 22:04 10 ml ONCE ONE Administration ORDERS Category Date Time Status Hand XR left minimum 3 views [XR hand LT min 3V] Stat Exams 08/07/24 22:03 Completed Medical Decision Narrative: In summary, this patient is a 59-year-old male presenting to the Emergency Department for evaluation of laceration to his left middle finger. Differential diagnoses considered include but are not limited to fracture, abrasion, foreign body, open fracture. Ruling out the most morbid conditions drove assessment. On exam, the patient has a complex laceration to the left middle finger. He has a very irregular appearing laceration from a crush injury. He also has an abrasion to the left ring finger which I do not feel requires repair. Both wounds were copiously irrigated with Betadine. X-ray was obtained to rule out open fracture or foreign body. I independently interpreted x-ray prior to radiology read and noted no acute fracture or retained foreign body. After copious irrigation, patient consented to digital block for laceration repair. He tolerated this well with good anesthesia achieved and no complication. Laceration was repaired successfully and then dressed with bacitracin and a nonadherent dressing. Is felt the patient is appropriate for discharge with instructions for wound care and strict return precautions. He was discharged after all questions were answered Procedures Risk/Benefits of Procedure(s) Were Explained: Yes Laceration Laceration 1: Site: finger Side (If applicable): left Size (cm): 4 Description: irregular Depth: involves subcutaneous layer Local Anesthetic: lidocaine 1% Amount of anesthesia used (mL): 5 Pre-repair: wound explored, irrigated extensively, deep structures intact and wound margins revised Skin layer closed with: nylon Size (cm): 5-0 Number of sutures: 7 Technique: simple, interrupted Nerve Block Nerve Block 1: Time out performed: Yes Local Anesthetic: lidocaine 1% Amount of anesthesia used (mL): 5 Side: Left Nerve Blocks: digital Procedure Successful: Yes Patient Tolerated Procedure: well and no complications Complications: none Critical Care Critical Care Time Critical Care Time: No
== END 2024-08-07 23:59 | disposition home or self-care (01) ==
PROVIDERS: Emergency Provider Emergency Medicine; PCP Family Medicine
DX: S61.213A Laceration without foreign body of left middle finger without damage to nail, initial encounter (principal); W23.0XXA Caught, crushed, jammed, or pinched between moving objects, initial encounter
CPT/HCPCS: 12004; 73130; 99283; J2003